=== PATIENT | male | born 1960 | race Caucasian/White ===

== ENCOUNTER 2018-07-10 05:36 | Inpatient (IN) | payer MEDICARE ==
[~2018-07-10] VITALS: Ht 175.3 cm; Wt 99.6 kg
--- NOTE | ~2018-07-10 | HC ---
[facility] [place] [address] CONSULTATION Name: KISHA MENDIOLA Room #: 207-P [facility] M.R.#: [id number] Admission: 07/10/18 Attend Phys: Kofi Garcia MD Discharge: Date of : 56 Report #: [id number] THIS REPORT FOR: //name// CC: Dougie Garcia DATE OF SERVICE: 07/10/2018 REASON FOR CONSULTATION: Dialysis patient. HISTORY OF PRESENT ILLNESS: This is a 57-year-old male who recently has been under the care of the [facility]. He has been on dialysis for about 3 week's period that was started prior to his [facility] hospitalization at [facility]. I tried multiple ways of asking the patient and he cannot remember why his kidneys failed. Unfortunately, I cannot find the records from [facility]. He states he had a biopsy done and was told it was a 1% possibility of finding what was found, so I really do not have any idea what he was talking about as far as the etiology. Nevertheless, several weeks ago, he had left internal jugular vein tunneled dialysis catheter placed and he has been undergoing dialysis thrice weekly since that time. He has been dialyzing on a Sunday, Sunday, Sunday basis and he says he dialyzed earlier today. He says he really does not want to know any details about the dialysis, so he cannot tell me how long he dialyzed, how much volume was removed. He is uncertain how much urine he actually makes at this time. Otherwise, he is really sketchy on any details about his medical care. PAST MEDICAL HISTORY: Obviously, the renal disease. He has some atrial fibrillation, which is part of the reason he is admitted today, also some COPD. He has had deep venous thrombosis. Apparently, he has chronic pain, lays in bed and has developed a decubitus ulcer, also had prior C. diff and that is obtained from what minimal records I have and I cannot tell you much more. MEDICATIONS: Include albuterol, Karsten packets, vitamin C 500 mg b.i.d., aspirin 325 mg daily, Aranesp 40 mcg weekly, Valium p.r.n., Nephrocaps 1 daily, furosemide 80 mg daily, iron, Reglan 10 mg q.i.d., pantoprazole 40 mg b.i.d., Zosyn 2.25 g q.8h., Renvela 800 mg t.i.d. with meals as a phosphate binder, tamsulosin 0.4 mg daily, oral vancomycin (presumably followup of his C. diff), warfarin 3 mg daily, p.r.n. oxycodone. I am unable to find documentation of allergies. FAMILY HISTORY: Unavailable. SOCIAL HISTORY: Again, the patient has been living recently in [facility]. He lives in address in [place], [place] [address] CONSULTATION Name: KISHA MENDIOLA Room #: 207-P [facility] M.R.#: [id number] Admission: 07/10/18 Attend Phys: Kofi Garcia MD Discharge: Date of : 56 Report #: [id number] REVIEW OF SYSTEMS: Cannot tell me what he has. He has a lot of pain in his legs. He also has a lot of pain in his back. He says he has been eating. Denies dyspnea at this time. Cannot tell me about progression of his dialysis or what all has been involved with that. PHYSICAL EXAMINATION: GENERAL: A 57-year-old male who looks much older than his stated age. VITAL SIGNS: Blood pressure 133/94, heart rate 101, temperature is 97.9 degrees Fahrenheit. HEENT: Shows pupils equal and reactive. Oral mucosa is moist. NECK: Shows a left-sided IJ tunneled catheter in place. Through the clear bandage, there looks to be very mild erythema around the exit site. CHEST: Clear bilaterally. HEART: Has a regular rate and rhythm. ABDOMEN: Has active bowel sounds, is soft and nontender. EXTREMITIES: Both legs are wrapped. There appears to be some deeper edema present. Arms show changes of prior edema, but no current edema. I did not look at his decubitus. LABORATORY DATA: Which would have been post-dialysis today, sodium 135, potassium 3.7, chloride 101, bicarbonate 31, BUN 7, creatinine only 2.4, glucose 81, total protein 6.5, albumin 1.9, calcium 9.5. White count 8.3, hemoglobin 10.4, hematocrit 30.5, platelets 265,000. ASSESSMENT AND PLAN: 1. Renal failure. Duration sounds to be fairly recent. His creatinine is very low, but that is post-dialysis. We will access his records from [facility] and talked to Dr. Panchal who has been caring for him there to determine if this is something that looks like he might recover or if this is going to be end stage and chronic. In the meantime, we will follow serial labs and see if we are seeing any evidence of that he needs continued dialysis. Just start to manage creatinine 2.7, then he needs chronic dialysis. Again, that was a post-dialysis lab, so it could be he had very effective clearance. In the meantime, his volume status is good today. His electrolytes are okay. We will follow on that. 2. Decubitus ulcers needing debridement and surgery. 3. Recent atrial fibrillation. 4. Other history, which is rather scant, to be determined going forward. By: 1750 192 Markus Terry MD /nt
[~2018-07-10 05:36] MED LIST: ACIDOPHILUS LA1 EAC1 PO; ALBUTEROL2.5 MG/0.1 INH; APAP650 PO; ARANESP 4040 MCG/0.4 SUBQ; ASPIRIN325 PO; COLACE100 MG PO; COUMADIN 3 MG TA3 M1 PO; DAKIN'S473 M2 TOP; FENTANYL 0.50 MCG/ML IV; FERREX 150150 MG PO; FLOMAX0.4 MG PO; JUVEN PACKET1 EAC1 PO; LASIX 80 MG TAB80 MG PO; MULTI VITAMIN1 EACH PO; NEPHRO-VITE RX1 TA1 PO; OXYCODONE IR PO; PHENERGAN 25 MG25 M1 IV; PIPERACIL-TAZ2.25 G1 IV; PROSOURCE PLUS30 ML PO; PROTONIX40 M1 PO; REGLAN 10 MG TA10 MG PO; RENVELA800 MG PO; SSD CREAM 1% 5050 GM TOP; VALIUM5 MG PO; VANCOMYCIN5 GM/VIAL IV; VITAMINC500 PO; ZINC-220220 MG PO; ZOFRAN4 MG/5 ML IV
[2018-07-10 10:37] LABS: HEMATOCRIT 30.5 % (42.0-52.0); HEMOGLOBIN 10.4 gm/dL (14.0-18.0); MCH 31.9 pg (26.0-34.0); MCHC 34.1 g/dL (28.0-37.0); MCV 93.6 fL (80.0-100.0); RBC 3.26 mil/uL (4.50-6.00); RDW 15.6 % (10.5-14.5); WBC 8.3 thou/uL (4.0-11.0)
[2018-07-10 10:51] LABS: INR 1.3; PROTIME 13.6 Seconds (9.3-11.4)
[2018-07-10 10:52] LABS: CALCIUM 8.5 mg/dL (8.5-10.1); CREATININE 2.4 mg/dL (0.7-1.3); POTASSIUM 3.7 mmol/L (3.5-5.1)
[2018-07-10 10:57] LABS: ALBUMIN 1.9 g/dL (3.4-5.0); TOTAL BILIRUBIN 0.4 mg/dL (<0.1-1.0); TOTAL PROTEIN 6.5 g/dL (6.4-8.2)
[2018-07-10 11:00] VITALS: BP 133/94
[2018-07-10 13:45] VITALS: BP 134/81
--- NOTE | 2018-07-10 14:42 | EKG ---
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: chantell : 1960 Requested By: Hossein Bautista Order Number: [id number] MD: Elieser Rivas Measurements Intervals [place] Rate: 98 P: 38 LA: 106 QRS: -15 QRSD: 104 T: 243 QT: 427 QTc: 546 Interpretive Statements Sinus rhythm Multiple premature complexes, supraven Borderline left axis deviation Nonspecific T abnormalities Borderline prolonged QT interval Baseline wander in lead(s) V2 No previous ECG available for comparison Electronically Signed On 07-10-2018 14:42:43 LEASE OPERATOR by Elieser Rivas [email or web address] <ELECTRONICALLY SIGNED> By: Elieser Rivas MD, [facility] 07/10/18 1442 1035 1035 Elieser Rivas MD, [facility] /EPI
--- NOTE | 2018-07-10 17:56 | NUR ---
PT CAME TO UNIT FROM OPERATING ROOM. PT WAS IN AFIB WITH RATE IN LOW 100'S AND DR. RAMON ORDERED CARDIOLOGY CONSULT TO CLEAR PT FOR SURGERY ON SUNDAY. PT HAS LOWER BACK AND LEG PAIN PARTIALLY CONTROLLED WITH MEDICATION. PT IS FROM [facility]. PT HAS SACRAL WOUND AND WOUND CARE CONSULTED. WILL CONT WITH POC.
[2018-07-10 19:48] VITALS: BP 125/85
[2018-07-10 23:53] VITALS: BP 105/61
[2018-07-11 03:56] VITALS: BP 105/45
[2018-07-11 05:57] LABS: ABSOLUTE NEUTROPHILS 4.9 thou/uL (1.4-8.2); BASOPHILS 1.2 % (0.0-2.0); EOSINOPHILS 10.5 % (0.0-3.0); HEMOGLOBIN 9.1 gm/dL (14.0-18.0); LYMPHOCYTES 17.6 % (24.0-44.0); MCH 31.7 pg (26.0-34.0); MCHC 33.7 g/dL (28.0-37.0); PLATELET COUNT 265 thou/uL (150-400); POLYS 61.7 % (36.0-66.0); RBC 2.87 mil/uL (4.50-6.00); RDW 15.4 % (10.5-14.5); WBC 7.9 thou/uL (4.0-11.0)
--- NOTE | 2018-07-11 05:59 | NUR ---
ASSUMED PT CARE WITH REPORT TAKEN, PT IS ALERT AND ORIENTED WITH NO SIGN OF DISTRESS NOTED IN PT, DENIES ANY NEED AT THIS TIME. PT REQUESTED FOR PAIN MEDICATION THROUGHOUT THE NIGHT, SCHEDULED MED ADMINISTERED TO PT, DENIES ANY FUTHER NEEDS AT THIS TIME. PT IS STABLE, MARI; SIGN STABLE, CONTINUE TO MONITOR PATIENT
[2018-07-11 07:50] VITALS: BP 94/51
--- NOTE | 2018-07-11 08:14 | 2DMMODE ---
[facility] [place] [address] 2 D/M-MODE ECHOCARDIOGRAM Name: KISHA MENDIOLA Room #: 207-P [facility] [place] M..#: [id number] Admission: 07/10/18 Attend Phys: Alok Sanchez Discharge: Date of : 56 Date of Service: 07/11/18 0814 Report #: [id number] THIS REPORT FOR: //name// APPROVED REPORT Study performed: 07/11/2018 07:07:23 EXAM: Comprehensive 2D, Doppler, and color-flow Echocardiogram Patient Location: Bedside Room #: [facility] Status: routine BSA: 2.18 HR: 95 bpm BP: 105/45 mmHg Rhythm: Paroxysmal Atrial Fibrillation Other Information Study Quality: Fair/patient sitting up in bed. Technically limited study due to inability to move patient, limited cooperation, body habitus. Indications Paroxysmal Afib. Hx:Afib, COPD, ESRD Echo Enhancing Agent Indication: Endocardial border delineation Agent(s) / Amount(s) Used: Optison 4 cc 2D Dimensions RVDd: 35.95 mm IVSd: 10.07 (7-11mm) LVOT Diam: 21.99 (18-24mm) LVDd: 47.94 mm PWd: 10.10 (7-11mm) LVDs: 35.70 (25-40mm) Aortic Root: 35.56 mm Volumes Left Atrial Volume (Systole) Single Plane 4CH: 26.53 mL Single Plane 2CH: 48.43 mL LA ESV Index: 19.00 mL/m2 Aortic Valve AoV Peak [place].: 2.20 m/s AO Peak Gr.: 19.42 mmHg LVOT Max P.44 mmHg AO Mean Gr.: 12.20 mmHg [facility] [address] [place] [address] 2 D/M-MODE ECHOCARDIOGRAM Name: MARLENAKISHA Room #: [address] [place] [address].#: [id number] Admission: 07/10/18 Attend Phys: Alok Sanchez Discharge: Date of : 56 Date of Service: 07/11/18 0814 Report #: [id number] AO V2 Mean: 1.68 m/s LVOT Max V: 1.04 m/s AO V2 VTI: 34.81 cm DEDE Vmax: 1.79 cm2 Mitral Valve E/A Ratio: 1.0 MV Decel. Time: 213.32 ms MV E Max [place].: 0.71 m/s MV A [place].: 0.70 m/s MV PHT: 61.86 ms IVRT: 101.50 ms Tricuspid Valve TR Peak [place].: 2.19 m/s TR Peak Gr.: 19.22 mmHg Left Ventricle The left ventricle is normal size. There is normal LV segmental wall motion. There is normal left ventricular wall thickness. Left ventricular systolic function is normal. LVEF is 60-65%. This study is not technically sufficient to allow evaluation of the LV diastolic function. Right Ventricle Right ventricle is not well visualized but appears grossly normal. Atria The left atrium size is normal. The right atrium size is normal. Aortic Valve Aortic valve leaflets are sclerotic Mild aortic regurgitation. Mild aortic stenosis. Mitral Valve Mild mitral annular calcification. There is no mitral valve regurgitation noted. No evidence of mitral valve stenosis. Tricuspid Valve The tricuspid valve is normal in structure. Trace tricuspid regurgitation. Estimated PAP is 25 mmHg Pulmonic Valve Pulmonic valve is not well visualized. [facility] [address] [place] [address] 2 D/M-MODE ECHOCARDIOGRAM Name: KISHA MENDIOLA Room #: 207-P [facility] [place] M..#: [id number] Admission: 07/10/18 Attend Phys: Alok Sanchez Discharge: Date of : 56 Date of Service: 07/11/18 0814 Report #: [id number] Great Vessels The aortic root is normal in size. Ascending aorta is not well visualized. IVC is not well visualized. Pericardium There is no pericardial effusion. <Conclusion> Left ventricular systolic function is normal. There is normal LV segmental wall motion. LVEF is 60-65%. Aortic valve leaflets are sclerotic. Mild aortic regurgitation and stenosis. Mild mitral annular calcification. No mitral valve regurgitation Trace tricuspid regurgitation. Estimated pulmonary artery pressure of 25 mmHg There is no pericardial effusion. <ELECTRONICALLY SIGNED> By: Elieser Rivas MD, FACC 07/11/18813 3 3 Elieser Rivas MD, FACC /INF
--- NOTE | 2018-07-11 08:34 | NUR ---
Assess due to RD consult received for pt with sacral ulcer requiring sacral debridement and diverting colostomy pending sunday. Pt poor historian. Chart reviewed and noted has been bedbound due to back pain, new start dialysis for GARY ~3 weeks ago, unknown etiology. Has resided at [facility] and was on irma supplements so will restart these. No wt hx but pt reported was eating. Low nutrition risk with nutrition interventions started. Follow for intake trends, encourage high protein sources.
--- NOTE | 2018-07-11 08:40 | EKG ---
[place] [address] [facility] [place] [address] ELECTROCARDIOGRAM REPORT Name: KISHA MENDIOLA Room #: 207-P [facility]..#: [id number] Admission: 07/10/18 Attend Phys: Kofi Garcia MD Discharge: Date of : 56 Report #: [id number] THIS REPORT FOR: //name// [facility] Test Date: 2018-07-11 Test Time: 06:37:12 Pat Name: KISHA MENDIOLA Department: Room: 207 P Gender: M Ham Smoker: RAJIV : 1960 Requested By: Elieser Rivas Order Number: [id number] MD: Elieser Rivas Measurements Intervals [place] Rate: 91 P: 30 OK: 118 QRS: -18 QRSD: 76 T: 33 QT: 427 QTc: 526 Interpretive Statements Sinus rhythm with frequent atrial premature complexes. Nonspecific ST and T wave abnormality Prolonged QT interval Compared to ECG 07/10/2018 10:35:15 No significant change was found Electronically Signed On 07-11-2018 8:40:13 HOT TAR ROOFER by Elieser Rivas [email or web address] <ELECTRONICALLY SIGNED> By: Elieser Rivas MD, [facility] 07/11/18 0840 0637 0637 Elieser Rivas MD, [facility] /EPI
--- NOTE | 2018-07-11 10:53 | NUR ---
Patient admits from [facility] for debridgement and colostomy. Patient was at [facility]. He has decubutous ulcers to sacrum. Patient agreeable to return to [facility] post procedure but wants to return Sunday. updated [facility]
--- NOTE | 2018-07-11 14:41 | NUR ---
WOUND CONSULT: PT. WAS SEEN TODAY BY DR. ALLISON AND MYSELF. PT. REFUSED TO ALLOW US TO TURN AND ASSESS HIS WOUND TO HIS BACKSIDE AT THIS TIME. PT. KEEP STATING OVER AND OVER AGAIN THAT HE JUST WASN'T READY. AFTER SOME DISCUSSION HE DID FINALLY AGREE TO ALLOW DR. ALLISON TO RETURN AFTER HIS CLINIC WAS FINISHED TODAY AND ASSESS HIS WOUND. PT. SHOWS SIGNIFICANT SIGNS OF NON-COMPLIANTS AND WOUND HEALING WILL BE VERY DIFFICULT. STAFF NURSE WAS PRESENT IN THE ROOM FOR THIS VISIT WELL. RECOMMENDATIONS: CONTINUE TO TRY TO RESON WITH PT. TO GET TO SEE THE WOUNDS SO AN ASSESMENT CAN BE COMPLETED AND ORDERS CAN BE PLACED. PT. AND STAFF NURSE WERE INSTRUCTED ON PLAN OF CARE.
--- NOTE | 2018-07-11 15:20 | NUR ---
ASSUMED CARE OF PT AT 0700. PT A&OX4, BEDRIDDEN. PT COMPLAINS OF PAIN IN LOWER BACK AND LEGS THAT IS PARTIALLY RELIEVED BY MEDICATION. PT REFUSES CARES AND TURNS. DR. ALLISON, AND NURSE MARY CAME TO ACCESS PT'S WOUND WITH THIS NURSE. PT REFUSED CARES AND DR. ALLISON SAID HE WOULD TRY AGAIN AT 1715. PT HAS NOT LET ME LOOK AT WOUND OR PHOTOGRAPH. PT AGREED TO AIR PUMP FOR BED. WILL TRY AND ACCESS WOUND AGAIN AT 1715 WITH AT 1715.
[2018-07-11 15:35] VITALS: BP 91/54
[2018-07-11 19:52] VITALS: BP 116/61
[2018-07-12] VITALS: BP 105/55
--- NOTE | 2018-07-12 04:26 | NUR ---
ASSUMED PT CARE AT 1900. PT A/O X4, A LITTLE IRRITABLE. VITAL SIGNS STABLE, ASSESSMENT CHARTED. PAIN PARTIALLY CONTROLLED WITH PAIN MEDICATION. PT REFUSED TURNS AND WILL ONLY LET US PULL HIM UP IN BED. PT RESTED WELL THROUGH THE NIGHT. WILL CONTINUE TO MONITOR AND ENCOURAGE TURNS. PROGRESSING SLOWLY TOWARD PLAN OF CARE. SURGERY IN AM. WILL CONTINUE TO MONITOR.
[2018-07-12 04:46] VITALS: BP 89/49
--- NOTE | 2018-07-12 05:40 | H ---
[facility] [place] [address] HISTORY AND PHYSICAL Name: KISHA MENDIOLA Room #: 207-P ADM IN M.R.#: [id number] Admission: 07/10/18 Attend Phys: Kofi Garcia MD Discharge: Date of : 56 Report #: [id number] THIS REPORT FOR: //name// CC: Dougie Bautista DATE OF SERVICE: 07/10/2018 REASON FOR ADMISSION: This is a patient from [facility]. He is here for diverting colostomy and now admitted because of atrial fibrillation. HISTORY OF PRESENT ILLNESS: This patient has a sacral wound and is in need of diverting colostomy and there has been difficulty getting this accomplished due to anticoagulation status and now atrial fibrillation. PAST MEDICAL HISTORY: Significant for end-stage renal disease with dialysis. He has COPD. He has hypertension and debility. He also has sacral decubitus that is followed by the wound care team. MEDICATION LIST: Includes Lasix, Flomax, pantoprazole, DuoNeb, oxycodone, diazepam, fentanyl, promethazine, and Cardizem. FAMILY HISTORY: Noncontributory. SOCIAL HISTORY: He is disabled, on dialysis currently at [facility], which is LT[facility]. REVIEW OF SYSTEMS: 10-point otherwise negative. PHYSICAL EXAMINATION: GENERAL: Shows him to be awake, alert and oriented. He is in no distress. HEENT: Negative. NECK: Supple without thyromegaly or adenopathy. CHEST: Clear. CARDIOVASCULAR: Shows regular rate and rhythm. ABDOMEN: Soft and nontender. EXTREMITIES: No cyanosis, clubbing or edema. NEUROLOGIC: Nonfocal. WOUND EXAM: I reviewed the wound care documentation for the sacral wound. LABORATORY DATA: Laboratory parameters are as noted. ASSESSMENT AND PLAN: This is a patient with sacral wound and in the need of diverting colostomy with significant comorbid condition of atrial fibrillation [facility] [address] [place] [address] HISTORY AND PHYSICAL Name: KISHA MENDIOLA Room #: 207-P ADM IN [facility]#: [id number] Admission: 07/10/18 Attend Phys: Kofi Garcia MD Discharge: Date of : 56 Report #: [id number] that needs to be further evaluated prior to surgery since basically the surgical approach is elective. <ELECTRONICALLY SIGNED> By: Silvio Gil MD 07/12/18 0540 1437 1535 Silvio Gil MD /nt
[2018-07-12 06:28] LABS: ALBUMIN 1.6 g/dL (3.4-5.0); CALCIUM 8.6 mg/dL (8.5-10.1); PHOSPHORUS 2.8 mg/dL (2.5-4.9)
[2018-07-12 06:29] LABS: % SATURATION 49 % (20-39); CREATININE 4.8 mg/dL (0.7-1.3); IRON 32 ug/dL (65-175); TIBC 65 ug/dL (250-450)
[2018-07-12 07:55] VITALS: BP 107/53
--- NOTE | 2018-07-12 08:20 | NUR ---
PT REQUESTED HELP WITH POSITIONING AND PAIN MEDICATION. ACCEPTED HAVING HIS VITALS TAKEN BUT COMPLAINED ABOUT IT. I STARTED TO DO MY ASSESSMENT AND WHEN I PUT MY STETHOSCOPE TO HIS CHEST HE REFUSED AND YELLING NO AND LEAVE ME ALONE. WILL TRY ASSESSMENT BEFORE GIVEN NEXT PAIN MED.
--- NOTE | 2018-07-12 08:22 | HC ---
[facility] [place] [address] CONSULTATION Name: KISHA MENDIOLA Room #: 207-P ADM IN M.R.#: [id number] Admission: 07/10/18 Attend Phys: Kofi Garcia MD Discharge: Date of : 56 Report #: [id number] THIS REPORT FOR: //name// CC: Dougie Bautista DATE OF SERVICE: 07/11/2018 CHIEF COMPLAINT: Sacral and right posterior thigh pressure ulcerations. HISTORY OF PRESENT ILLNESS: This is a 57-year-old white male with a history of paraplegia. He has significantly infected pressure ulceration and was admitted for debridement and colostomy placement. He has had a recent hospitalization at [facility] for acute kidney injury that required initiation of dialysis. He has had a longstanding pressure ulcer. It is unknown as to exactly when it began. He complains of significant pain in his pelvic region and his legs. It is not entirely clear what the etiology is. He has end-stage renal disease, requiring dialysis recently. He has a history of C. diff enterocolitis as well as atrial fibrillation. MEDICATIONS: Include albuterol, vitamin C, aspirin, Aranesp, Valium, Nephrocaps, furosemide, iron, Reglan, pantoprazole, Zosyn, Renvela, tamsulosin, vancomycin and Coumadin. ALLERGIES: PROCHLORPERAZINE. SOCIAL HISTORY: Negative for drug use. Negative for alcohol use. Positive for smoking, having quit greater than 1 year ago. FAMILY HISTORY: Unknown and noncontributory. REVIEW OF SYSTEMS: CONSTITUTIONAL: The patient denies fever, chills or weight loss. NEUROLOGICAL: The patient does have some lower extremity weakness. The etiology is indeterminate. ENT: The patient denies earache, nasal drainage or sore throat. CARDIOVASCULAR: The patient denies chest pain, palpitations or diaphoresis. PULMONARY: The patient denies cough or shortness of breath. GASTROINTESTINAL: The patient denies nausea, vomiting, diarrhea or abdominal pain. ORTHOPEDIC: The patient complains of pain in his pelvic region as well as legs and lower extremities. Other systems in a 14-point review of systems are negative. PHYSICAL EXAMINATION: [facility] [address] [place] [address] CONSULTATION Name: KISHA MENDIOLA Room #: 207-[facility] IN [facility].#: [id number] Admission: 07/10/18 Attend Phys: Kofi Garcia MD Discharge: Date of : 56 Report #: [id number] VITAL SIGNS: At this time include pulse 95, respiratory rate 20, blood pressure 91/54, temperature 98.7. GENERAL: This is a chronically ill-appearing male patient who appears to be in moderate discomfort. HEENT: Head: Normocephalic, atraumatic. Nose and throat clear. NECK: Supple. LUNGS: Clear. HEART: Irregular. ABDOMEN: Slightly distended, nontender. Pelvic region demonstrates complex pressure ulcerations to the sacral gluteal region with tunnels and some palpable bone that can be palpated, but not visualized. EXTREMITIES: There is a large ulceration to his right posterior thigh. It is mostly covered with yellow fibrin with a ring of granulation tissue. Lower extremities shows some evidence of contracture in the knees and hips. His lower extremities are wrapped and he has not permitted me to unwrap them. CLINICAL IMPRESSION: 1. Stage 4 sacral gluteal pressure ulceration. 2. Unstageable pressure ulcer in right posterior thigh. 3. Lower extremity weakness/paraplegia of uncertain etiology. The patient has not been very forthcoming with additional information about himself. 4. End-stage renal disease, requiring dialysis. 5. Atrial fibrillation. RECOMMENDATIONS: The patient is scheduled for debridement and colostomy tomorrow. We have discussed this in detail. He is willing to proceed with that. He is very particular about his wound care and turning and he is reluctant to be placed on a turning protocol. He has reluctantly allowed us to use a low air loss mattress. We will suggest Prevalon boots or PRAFO boots for pressure prophylaxis, but he does state he does not wish to have these in place at this time. I have changed his dressings and placed a moistened saline gauze dressing to the wounds today indicating that he would likely have a debridement tomorrow. We will leave surgical dressings in place at least for 24 hours and then perhaps go with the saline moist gauze dressing or wound VAC, although the patient has a voice that he does not wish to have a wound VAC. I appreciate being asked to see him in consultation. This will certainly be a challenge with his moderate noncompliance with offloading and other instructions. <ELECTRONICALLY SIGNED> By: Ignacio Williamson MD 07/12/18 0822 1837 24 Ignacio Williamson MD /nt
--- NOTE | 2018-07-12 10:33 | NUR ---
patient went for sx. Updated [facility] they need to obtain auth from [facility] for return to [facility]. anticipate no weekend dc.
[2018-07-12 14:10] VITALS: BP 103/68
[2018-07-12 15:25] VITALS: BP 104/54
[2018-07-12 19:43] VITALS: BP 84/51
[2018-07-12 23:06] LABS: HBsAG-EMPLOYEE EXPOSURE Negative (Negative); HCV AB-EMPLOYEE EXPOSURE 0.2 (0.0-0.9)
[2018-07-13 00:05] VITALS: BP 94/40
--- NOTE | 2018-07-13 03:44 | NUR ---
PT POST WOUND DEBRIDMENT. ALERT AND ORIENTED. VSS.. A LITTLE LOW BP. PT CALM AND COOPERATIVE BUT UNCOOPERATIVE AND REFUSES OTHER CARES. PT REFUSED REPOSITIONING Q2H. NURSE EXPLAINED THE NEED FOR Q2 TURNS BUT PT COULD NOT LET US TURN HIM . PAIN MED GIVEN NEEDED ROUTINELY. NEW COLOSTOMY BAG INTACT. URINARY CATHETER PATENT. WILL CONTINUE TO FOLLOW POC.
[2018-07-13 04:23] VITALS: BP 96/49
[2018-07-13 04:38] LABS: ABSOLUTE NEUTROPHILS 14.1 thou/uL (1.4-8.2); BASOPHILS 0.3 % (0.0-2.0); EOSINOPHILS 0.1 % (0.0-3.0); HEMOGLOBIN 7.5 gm/dL (14.0-18.0); LYMPHOCYTES 5.9 % (24.0-44.0); MCHC 32.7 g/dL (28.0-37.0); MCV 94.9 fL (80.0-100.0); MONOCYTES 5.9 % (1.0-8.0); PLATELET COUNT 260 thou/uL (150-400); POLYS 87.8 % (36.0-66.0); RBC 2.43 mil/uL (4.50-6.00); RDW 15.6 % (10.5-14.5)
[2018-07-13 04:44] LABS: ALBUMIN 1.5 g/dL (3.4-5.0); CALCIUM 8.8 mg/dL (8.5-10.1); CREATININE 5.7 mg/dL (0.7-1.3); PHOSPHORUS 4.2 mg/dL (2.5-4.9); POTASSIUM 4.9 mmol/L (3.5-5.1)
[2018-07-13 07:30] VITALS: BP 100/46
--- NOTE | 2018-07-13 11:54 | NUR ---
PT WOUND CARE - PT REFUSES WOULD CARE BE RN AND STATES, "NO, THE WOULD DR WILL DO IT AND WILL BE HERE TODAY". WILL MONITOR.
[2018-07-13 19:52] VITALS: BP 95/36
--- NOTE | 2018-07-13 21:06 | O ---
[facility] [place] [address] OPERATIVE REPORT Name: KISHA MENDIOLA Room #: 207-P ADM IN M.R.#: [id number] Admission: 07/10/18 Attend Phys: Kofi Garcia MD Discharge: Date of : 56 Report #: [id number] THIS REPORT FOR: //name// CC: Dougie Bautista MD DATE OF SERVICE: 07/12/2018 PREOPERATIVE DIAGNOSES: 1. Unstageable sacral/ischial and right posterior thigh decubitus ulcers. 2. End-stage renal disease with hemodialysis dependence. 3. Chronic obstructive pulmonary disease. 4. Hypertension. 5. Debility. POSTOPERATIVE DIAGNOSES: 1. Stage 4 sacral/ischial decubitus ulcer and stage 3 right posterior thigh ulcer. 2. Incarcerated incisional ventral hernia. 3. End-stage renal disease with hemodialysis dependence. 4. Chronic obstructive pulmonary disease. 5. Hypertension. 6. Debility. SURGEON: Hossein Bautista MD. GROUNDS SUPERVISOR: None. OPERATION PERFORMED: 1. Laparoscopic assisted diverting end transverse colostomy. 2. Laparoscopic primary repair of incarcerated incisional ventral hernia. 3. Excisional and ultrasonic debridement of stage 4 sacral and right heel decubitus ulcers including skin, subcutaneous tissue, muscle and bone with a starting area of 28 square cm and then ending area of 387 square cm. 4. Excisional and ultrasonic debridement of stage 3 right posterior thigh decubitus ulcer including skin and subcutaneous tissue with a starting area of 28 square cm and an ending area of 41.3 square cm. ANESTHESIA: General endotracheal anesthesia and local anesthetic. ESTIMATED BLOOD LOSS: 25 mL. SPECIMEN: Sacral soft tissue, sacral bone and right posterior thigh soft [facility] [address] [place] [address] OPERATIVE REPORT Name: KISHA MENDIOLA Room #: 207-P [facility] IN .R.#: [id number] Admission: 07/10/18 Attend Phys: Kofi Garcia MD Discharge: Date of : 56 Report #: [id number] tissue. COMPLICATIONS: None appreciated. INDICATION FOR PROCEDURE: This is an obese 57-year-old male patient who has been bedbound as a result of back and lower extremity pain. As a result of his sedentary lifestyle, he developed extensive sacral and right posterior thigh decubitus ulcers that are essentially unstageable. The area involved is quite large and has a high likelihood of fecal contamination. The patient presents now for laparoscopic-assisted diverting colostomy as well as excisional and ultrasonic debridement of his wounds. OPERATIVE FINDINGS: The wound measurements are as noted above. The patient had extensive soft tissue loss involving the sacrum and right ischium with a bridge connecting the 2 areas. After opening the wound and excising the skin bridge, the area was 387 square cm. The right posterior thigh wound was much smaller and involved only skin and subcutaneous tissue. Laparoscopically, a suitable site for the colostomy was chosen. After creation of the stoma, the stoma itself was palpably patent beyond the fascial level on digital exam. The stomal mucosa remained pink throughout with no evidence for ischemia. DESCRIPTION OF PROCEDURE IN DETAIL: After the risks, benefits, and expectations of the operation were discussed in detail with the patient, informed consent was obtained. The patient was identified in the preoperative holding area. He was given IV antibiotics as documented in the chart [facility]. The patient was then taken to the operating room and he was placed in the supine position. SCDs were placed on the patient's bilateral lower extremities and pneumatic compression was initiated. The patient was then given IV sedation and he was intubated without incident. He was placed in the prone position on the operating room table. His sacral and right ischial areas as well as right posterior thigh were prepped and draped in the standard sterile fashion. A time-out was performed to identify the correct patient and procedure. Local anesthetic was infiltrated into the skin and subcutaneous tissue in the area of planned incision. Measurements were taken before excision of the tissue as well as after full debridement of both areas. The sacral and right ischial areas connected with the subcutaneous tunnel. The skin and subcutaneous tissue was then excised including all nonviable tissue. Dissection was carried down to the sacral bone and right ischial bone, both of which appeared to be involved with infection. Cultures were taken to be sent for aerobes, anaerobes and fungus. Bleeding points were then made hemostatic with electrocautery. A rongeur was used to remove bony prominences and any involved osteomyelitis. A rasp was then used to smooth out the outer table of the bone and prevent jagged edges from causing further necrosis. [address] [address] OPERATIVE REPORT Name: KISHA MENDIOLA Room #: 207-P ADM IN M.R.#: [id number] Admission: 07/10/18 Attend Phys: Kofi Garcia MD Discharge: Date of : 56 Report #: [id number] The Misonix ultrasonic debridement device was used to mechanically debride the entire surface area of the wound. There was good cavitation of the wound with a microscopic clearance of nonviable cells and bacteria. Bleeding points were again made hemostatic with electrocautery. The wound was then packed with normal saline on Kerlix. Sterile dressings were applied. The right posterior thigh wound was debrided in a similar fashion. Local anesthetic was infiltrated into the skin and subcutaneous tissue. The planned incision was drawn out with a skin marker and a sharp #10 blade scalpel was used to make an incision through the skin. Electrocautery was used to dissect through the subcutaneous tissue and excise all nonviable tissue. Bleeding points were then made hemostatic with electrocautery. The Misonix device was used to mechanically debride the right posterior thigh wound for the entire surface area. The wound was packed with normal saline on 4 x 4s and sterile dressings. The patient was then placed in the supine position on the operating room table. His abdomen was prepped and draped in the standard sterile fashion. Local anesthetic was infiltrated into the skin and subcutaneous tissue in the periumbilical area where a small incision was made. The 5-mm Visiport was placed intraperitoneally with a 0-degree angled laparoscope. Pneumoperitoneum was achieved with insufflation of carbon dioxide to 15 mmHg. A 30-degree angled laparoscope was inserted. Intraabdominal adhesions were seen. The 5-mm ports were placed in the left subcostal and right lower quadrant after local anesthetic was infiltrated into the skin and subcutaneous tissue and appropriately sized incisions were made. The transverse colon was identified and a suitable area was chosen for transection. A window was made in the mesocolon with the ultrasonic dissector. The right lower quadrant 5-mm port was upsized to a 12-mm port. The endoscopic ANA stapler was then used to staple and divide the transverse colon. The hepatic flexure was mobilized to help achieve length and help decrease the risk for retraction of the stoma. A 5-mm port was then placed in the area of the planned stoma under direct visualization. A circular skin incision had been created. After placing the port, a wavy grasper was used to grasp the proximal staple line. Dissection was then carried down to the fascia externally. A cruciate incision was made in the fascia. The posterior fascia was opened in a similar fashion. After stretching the fascia to allow for passage of 2-3 fingers, the proximal staple line was delivered externally. The staple line was then excised and the colostomy was matured. Interrupted Zelda-type sutures were placed at the 12, 3, 6, and 9 o'clock positions. Short runs of 3-0 Vicryl suture were then used to complete the maturation process. After doing so, the stoma was digitally examined and was palpably patent beyond the fascial level. The 12-mm port site fascial opening was closed with an 0 PDS suture laparoscopically. The abdominal cavity was then desufflated and the remaining ports were removed. Interrupted subcuticular 4-0 Monocryl sutures and Dermabond were used to close [address] [address] OPERATIVE REPORT Name: KISHA MENDIOLA Room #: 207-P [facility] IN M.R.#: [id number] Admission: 07/10/18 Attend Phys: Kofi Garcia MD Discharge: Date of : 56 Report #: [id number] the skin incisions. The patient tolerated the procedure well. He was awakened, extubated, and taken to recovery room in stable condition with no apparent intraoperative complications. <ELECTRONICALLY SIGNED> By: Hossein Bautista MD, FACS 07/13/182105 11 13 Hossein Bautista MD, FACS /nt
--- NOTE | 2018-07-14 04:10 | NUR ---
PT ALERT AND ORIENTED. PAIN CONSTANT AT 8-9/10. PRN 20MG Q4 GIVEN. PT STILL REFUSES REPOSITIONING. REFUSED WOUND CARE FROM DAY SHIFT AND ALSO NOC. I EXPLAINED TO THE PT RISKS OF NOT HAVING WOUND CARE DONE BUT STILL COULD NOT ALLOW DRESSING CHANGE. WILL CONTINUE TO FOLLOW POC.
[2018-07-14 05:27] VITALS: BP 98/49
[2018-07-14 07:45] VITALS: BP 91/54
[2018-07-14 11:40] VITALS: BP 89/47
[2018-07-14 15:50] VITALS: BP 93/60
[2018-07-14 19:35] VITALS: BP 90/51
--- NOTE | 2018-07-14 20:28 | NUR ---
ASSUMED CARE OF PT AT 0700. PREVIOUS NURSE REPORTS THAT PT REFUSING CARES. I DISCUSSED THE NEED FOR WOUND CARE DUE TO INFECTION PREVENTION AND HEALING. PT ALLOWED THIS NURSE TO CHANGE DRESSING THIS AFTERNOON. DRESSING CHANGE VERY DIFFICULT PT VERY ANXIOUS AND YELLS OUT IN PAIN. PT REFUSES TURNS AND HAS TWO PILLOWS ON EACH SIDE OF BUTTOCKS. PT REFUSED BED AIR PUMP AGAIN TODAY, EVEN AFTER EDUCATION GIVEN. DR. Brittany LAZARO AND DR. FRANKLIN NOTIFIED OF PT'S NON COMPLIANCE. PT'S BLOOD PRESSURE IS LOW, AND PT IS ASYMPTOMATIC. PT IS MED/SURG. WILL CONT WITH POC.
--- NOTE | 2018-07-14 22:15 | NUR ---
ASSESSMENT DOCUMENTED.PT RESTING IN BED AT THIS TIME IN NO ACUTE DISTRESS.AOX4.PT C/O PAIN TO BACK AND LEGS,BECOMES VERY IRRITABLE WITH ANY TOUCH/MOVEMENT,PAIN MEDS GIVEN PER ORDERS.PT REFUSED TO BE REPOSITIONED/TURNS IN BED.REFUSES WOUND ASSESSMENT BY RN,STATING HE IS OKAY AND TX IS ONCE/DAY.EDUCATED ON THE NEED OF FREQUENT TURNS/REPOSITION AND WOUND ASSESSMENT,VOICED UNDERSTANDING,YET REFUSES CARE.PT REQUESTING TO BE LEFT ALONE TO REST.WILL CONT TO MONITOR PE POC.
[2018-07-15 05:16] VITALS: BP 91/49
[2018-07-15 07:38] VITALS: BP 84/45
--- NOTE | 2018-07-15 10:50 | HC ---
[facility] [place] [address] [place] [address] CONSULTATION Name: KISHA MENDIOLA Room #: 207-P ADM IN M.R.#: [id number] Admission: 07/10/18 Attend Phys: Kofi Garcia MD Discharge: Date of : 56 Report #: [id number] THIS REPORT FOR: //name// CC: Dougie Bautista DATE OF SERVICE: 07/14/2018 REASON FOR CONSULTATION: I was asked to evaluate concerning sacral and heel osteomyelitis along with previous C. difficile colitis and end-stage renal disease. HISTORY OF PRESENT ILLNESS: The patient is a 57-year-old recently diagnosed with end-stage renal disease with dialysis via left chest tunneled catheter for approximately 4-6 weeks. This was treated at [facility]. He has had longstanding wounds. He has had issues with persistent pain. He avoids turning and has had progressive changes here. Recent diagnosis of C. difficile colitis having been treated. He was at [facility] for further wound care and dialysis. I saw him there and had him on Zosyn and enteral vancomycin. Transfers to [facility] for further surgical debridement and diverting colostomy. He underwent procedure with debridement of his sacrum, right heel and right thigh, now postoperative day #2. He also had creation of a colostomy for diversion of fecal stream along with repair of a hernia. Postoperatively, he has been stable. No fever, chills or sweats. Still has a leukocytosis. REVIEW OF SYSTEMS: The patient was a poor historian, but there has been no cough or sputum production. No nausea or vomiting. He still has not put any stool out of his ostomy. He is on dialysis 3 times a week. He has had no other skin rashes or wounds. No lymphatic issues. Denies any other neurologic or psychiatric illnesses. Has atrial fibrillation, which is being treated. No other pulmonary issues. Denies any endocrine abnormalities. REVIEW OF SYSTEMS: A 10-point review of systems is otherwise negative than what is described. ALLERGIES: PROCHLORPERAZINE. MEDICATIONS: As noted on his MAR including Zosyn. The vancomycin was not restarted yet. PAST MEDICAL HISTORY: No chronic renal disease with end-stage renal disease, atrial fibrillation, COPD, DVT, chronic pain syndrome, C. difficile colitis, decubitus ulcers with now evidence of osteomyelitis. [address] [address] CONSULTATION Name: KISHA MENDIOLA Room #: 207-P [facility] IN M.R.#: [id number] Admission: 07/10/18 Attend Phys: Kofi Garcia MD Discharge: Date of : 56 Report #: [id number] FAMILY HISTORY: Noncontributory. SOCIAL HISTORY: He smokes cigarettes. No significant alcohol history. PHYSICAL EXAMINATION: GENERAL: Alert and cooperative and pleasant, in no acute distress. Does not like to be touched have his sheets pulled off. When attempting to move the patient, he gets very anxious. He appears his stated age. VITAL SIGNS: He is afebrile and hemodynamically stable. He has a right IJ central catheter, which was without drainage and he has a tunneled left chest catheter for his dialysis without drainage. HEENT: Mouth without mucositis or lesions. Eyes with no conjunctivitis or scleral icterus. NECK: Supple. LUNGS: Clear. HEART: Regular without murmur, gallop or rub. ABDOMEN: Soft and nontender. Sacral wound was dressed. Abdomen was mildly distended, was minimally tender except around his colostomy. His incisions were unremarkable. EXTREMITIES: Right heel wound was dressed. Right thigh wound was dressed. NEUROLOGIC: Nonfocal with no cranial nerve abnormalities and strength appeared normal throughout. LABORATORY STUDIES: His creatinine is 5.7, alkaline phosphatase 129, ALT 14, bilirubin 0.4, hemoglobin 7.5, platelet count 260,000, white count 16 with 87% segs, 5% lymphs. Sacral tissue Gram-stain showed no organisms and no white blood cells. Cultures are pending. Note that these cultures were obtained while on antibiotic therapy. IMPRESSION: 1. Sacral and right heel pressure wounds with underlying osteomyelitis. 2. Pressure wound to the right thigh posteriorly. 3. Intolerance of much activity due to chronic pain syndrome. 4. End-stage renal disease. 5. Recent Clostridium difficile colitis, now asymptomatic. 6. Atrial fibrillation. RECOMMENDATION: We will continue with Zosyn, adjusted for his renal failure. Restart enteral vancomycin to prevent relapse of his C. difficile colitis. Await tissue cultures. Follow laboratory studies including ESR. Continue offloading and wound care. <ELECTRONICALLY SIGNED> By: Kali Gil MD 07/15/18 1050 [id number] Kali Gil MD /nt
--- NOTE | 2018-07-15 11:48 | NUR ---
PT. CURRENTLY RESIDES AT [facility]. FAXED CLINICAL UPDATE TO FACILITY AND SPOKE WITH CHARLIE IN ADM. AND SHE RECEIVED UPDATE. DCP TO FOLLOW.
--- NOTE | 2018-07-15 12:08 | NUR ---
Patient stable to return to [facility]. Sp with [facility] they are in process of obtaining auth but likely with not rec in next 24/48 hours.
[2018-07-15 15:40] VITALS: BP 122/55
--- NOTE | 2018-07-15 19:31 | NUR ---
PARTIAL ASSESSMENT COMPLETED. PT WOULD NOT ALLOW THIS NURSE TO DO HEAD TO TOE ASSESSMENT. PT REFUSED TURNS, AIR MATTRESS PUMP, ASSESSMENT OF LEGS, ASSESSMENT OF OSTOMY, NOT ALLOWING GOWN TO BE RAISED FOR THIS NURSE TO LOOK. ONLY ABLE TO ASSESS RIGHT SIDED BOWEL SOUNDS. PT ALLOWED DR TAPIA TO DO DRESSING CHANGE AND TURNED ON RIGHT SIDE. EDU PT ABOUT REASONING FOR TURNS, PAIN MANAGEMENT WITH TURNS, AIR MATTRESS PUMP. PT YELLED AND DID NOT WANT IT ON THE BED. PT VERY RELUNCTANT TO HAVE ABX HOOKED UP, WAS ABLE TO GET ZOSYN STARTED AND FINISHED. PT TOOK ORAL VANCO. PT CALLS FOR MEDS EVERY 4 HOURS. PT REFUSED SKIN ASSESSMENT OF LEGS. PT REPORTED LEGS WERE WRAPPED AT [facility] AND WOULD NOT ALLOW THIS NURSE TO ASK QUESTIONS, CUTTING THIS NURSE OFF WHEN EXPLAINING NEED TO ASSESS LEGS. PT YELLED AND STATED TO COVER HIS LEGS BACK UP. PT HAD DIAYLSIS TODAY AND HAD 1.9 REMOVED. VSS, NO S/SX OF CARDIAC OR RESP DISTRESS. WILL CONTINUE TO MONITOR.
[2018-07-15 20:13] VITALS: BP 97/43
--- NOTE | 2018-07-15 23:06 | PATH ---
[facility] [place] [address] PATHOLOGY RPT PROCEDURE Name: EFRAIN AGUILAR Room #: 207-P ADM IN M.R.#: [id number] Admission: 07/10/18 Date of : 56 Discharge: Report #: [id number] Path Case #: [id number] [facility] Accession Number: [id number] . 01 Material submitted: . PART A: SACRAL TISSUE PART B: SACRAL BONE PART C: RIGHT POSTERIOR THIGH TISSUE PART D: INCARCERATED INCISIONAL VENTRAL HERNIA . 01 Clinical history: . Sacral wound . 02 Diagnosis: A. Skin with underlying soft tissue (sacral tissue): - Extensive epidermal ulceration with necrotic acute inflammatory exudate extending deeply into the underlying fat with fat necrosis. . B. Bone with surrounding soft tissue (sacral bone): - Acute and chronic osteomyelitis with areas of fibrosis. The surrounding soft tissue also reveals an inflammatory process. . C. Soft tissue "right posterior thigh tissue": - Extensive necrosis with acute inflammatory exudate with fat necrosis and gangrenous type of necrosis. . D. Fibroadipose tissue "incarcerated incisional ventral hernia", herniorrhaphy: - Fibroadipose tissue consistent with hernia with congestion. (SHA:orestes; 07/15/2018) QMS/07/15/2018 . 02 Electronically signed: . Aaron Hills MD, Pathologist NPI- [id number] . 01 Gross description: . A. The specimen is received in formalin, labeled "Efrain Aguilar, sacral tissue" and consists of a segment of necrotic and ulcerated hayes-sun skin with underlying yellow soft tissue measuring 12.0 x 9.3 x 3.0 cm. Control Systems Eng sections are submitted in A1. . B. The specimen is received in formalin, labeled "Efrain Aguilar, sacral bone" and consists of multiple fragments of sun-brown bone measuring 3.3 x 1.8 x 0.5 cm in aggregate which is entirely submitted in B1 [place] [address] PATHOLOGY RPT PROCEDURE Name: EFRAIN AGUILAR Room #: 207-P [facility] IN M.R.#: [id number] Admission: 07/10/18 Date of : 56 Discharge: Report #: [id number] Path Case #: [id number] C. The specimen is received in formalin, labeled "Efrain Aguilar, right posterior thigh tissue" and consists of a necrotic segment of yellow-sun tissue measuring 6.6 x 4.3 x 1.3 cm. Sectioning reveals fat necrosis and senior outside sales representative sections are submitted in C1. . D. The specimen is received in formalin, labeled "Efrain Aguilar, incarcerated incisional ventral hernia" and consists of a segment of yellow membranous tissue measuring 7.3 x 4.0 x 1.0 cm. Sectioning reveals no nodules or mass lesions. Control Systems Eng sections are submitted in D1. (SDY; 07/13/2018) SYU/SYU . 02 Pathologist provided ICD-10: M46.28, I96, M79.89, K43.6 . 02 CPT . 320594, 884106, 062128, 286009, [id number] Specimen Comment: A courtesy copy of this report has been sent to Specimen Comment: [phone]. Specimen Comment: Report sent to ,DR SCHULZ / DR RAND Performed at: [address], [place], [place] [id number] MD Hoang Gong MD Phone: [phone] Performed at: [address] [id number] MD Asya Quintanilla MD Phone: [phone]
--- NOTE | 2018-07-16 01:33 | NUR ---
ASSUMED CARE OF PT AT SHIFT CHANGE. PARTIAL ASSESSMENT CHARTED. PT AOX4, C/O PAIN, PO AND IV PAIN MEDS GIVEN THROUGHOUT NIGHT. DENIES CHEST PAIN. PT REFUSED TURNS, REFUSED WOUND ASSESSMENT AND DRESSING CHANGE. INFORMED PT ON WHY TURNS ARE IMPORTANT, AND WHY WOUND DRESSINGS NEED TO BE CHANGED, AND DID NOT ACKNOWLEDGE THE INFORMATION GIVEN. PT REFUSED TO LET THIS NURSE ASSESS LEGS AND FEET. O2 SATS WNL ON ROOM AIR. NO S/SX OF CARDIAC OR RESP DISTRESS NOTED. WILL CONTINUE TO MONITOR AND FOLLOW POC.
[2018-07-16 05:31] VITALS: BP 103/49
[2018-07-16 08:00] VITALS: BP 96/43
[2018-07-16 15:40] VITALS: BP 105/47
--- NOTE | 2018-07-16 18:19 | NUR ---
PT REMAINS A/O - REFUSED DRESSING CHANGE TO WOUND ON 3 OCCASSIONS - ATTEMPT ONE WAS A SIMPLE NO - ATTEMPT TWO PT WAS VERY AGITATED STATING THAT RN KEEPS BADGERING HIM AND HE WILL DISCUSS IT LATER - ATTEMPT THREE PT STATES BELLY HURTS FROM EATING COOKIES AND WILL LET NIGHT NURSE SCHEDULE CHECKER TOMORROW CHANGE THE DRESSING - FAMILY AT BEDSIDE FOR 3RD CONVERSATION RELATED TO WOUND DRESSING CHANGE
[2018-07-16 19:15] VITALS: BP 143/119
[2018-07-17 04:30] VITALS: BP 96/49
[2018-07-17 07:41] VITALS: BP 100/50
--- NOTE | 2018-07-17 07:49 | NUR ---
ASSUME CARE 1900. PT/VITALS STABLE. PT VERY IRRITABLE AND VERY UNCOORPERATIVE WITH CARE.PT IS ON BEDREST BUT REFUSES TO BE TOUCHED. HE DOES NOT WANT TO EB TURNED AND EDUCATION NEEDS TO BE DONE TO GET PT TO AGREE TO HEAD TO TOE ASSESSMENTS. PT REFUSES TO BE TOUCHED OR TURNED FOR WOUND CARE, WOULD NOT LET ANYONE CHANGE WOUND DRESSING. PT SMELLS BAD BUT REFUSES TO BE CLEANED UP. ALSO, PURULENT SCENT SEEMS TO BE COMING FROM WOUND BUT PT WOULD NOT TURN FOR NURSE TO ASSESS WOUNDS. PROGRESSING WITH POC. ASSESSMENT CHARTED. PLAN IS TO CONTINUE TO TREAT WITH ANRIBIOTICS, FOLLOW WITH WOUND CARE, AND POSSIBLE DISCHARGE TO SNF
--- NOTE | 2018-07-17 09:07 | NUR ---
PT WILL NOT BE EVALUATED BY OT DUE TO REFUSAL X3.
--- NOTE | 2018-07-17 09:53 | NUR ---
BASIC ASSESSMENT COMPLETED - PT REFUSES TURN AND WOUND CARE - STATES MAYBE LATER - EDUCATED THAT DIALYSIS WILL BE LATER - PT STILL REFUSING TREATMENT
--- NOTE | 2018-07-17 10:24 | NUR ---
[facility] updated they are working to obtain auth.
[2018-07-17 11:50] LABS: INR 1.9; PROTIME 20.1 Seconds (9.3-11.4)
--- NOTE | 2018-07-17 14:12 | NUR ---
Dr Comer approached [facility] to alert that patient stated to him he didnt want to return to [facility]. SP with patient and alerted we have cont [facility]. Reported they are in process of obtaining auth from insurance for his return. He reports ok and whatever. He is agreeable to return to [facility]. He is currently rec dialysis.
[2018-07-17 20:15] VITALS: BP 94/55
--- NOTE | 2018-07-17 22:20 | NUR ---
ASSUMED CARE OF PATIENT AROUND 1900. PATIENT C/O PAIN. MEDICATIONS ADMINISTERED AND PATIENT GIVEN NEXT AVAILABLE TIMES FOR MEDS. PATIENT REFUSING TURNS AND WOUND CARE. WANTS TO BE LEFT ALONE WITH EXCEPTIONS OF MEDICATION ADMINISTRATION, WILL ACCOMMODATE REQUEST. WILL CONTINUE TO MONITOR
[2018-07-18 04:53] VITALS: BP 95/52
[2018-07-18 08:09] VITALS: BP 95/45
--- NOTE | 2018-07-18 08:49 | NUR ---
ASSUMED PATIENT CARE THIS AM. PATIENT LYING IN BED, A&O. ROOM AIR. NO N/V STATED. PAIN PARTIALLY MANAGED WITH ORAL MEDICATION. PATIENT DID LET THIS RN PERFORM ASSESSMENT, UNABLE TO PALPATE PULSES OR ASSESS FOR EDEMA ON LOWER EXTREMITIES, PATIENT STATES JUST HAVING THE BLANKETS OFF HIS LEGS HURT SO BAD AND WOULD NOT LET THIS RN REMOVE LEG WRAPS OR SOCKS. TENTATIVE PLAN MADE WITH PATIENT TO PERFORM DRESSING CHANGE AROUND 1330. PATIENT UNHAPPY ABOUT IV ANTIBIOTICS RUNNING FOR FOUR HOURS AT A TIME, EDUCATION GIVEN TO PATIENT, PATIENT ALLOWED THIS RN TO HANG IV ANTIBIOTICS. INFORMED PATIENT OF NEXT AVAILABLE TIME FOR PAIN MEDICATION. PATIENT REFUSING TO REPOSITION AT THIS TIME.
--- NOTE | 2018-07-18 09:14 | NUR ---
ostomy care; refused for this [facility] nurse to view ostomy, states pouch intact, refused to have pouch change, informed pt pouch needs to be changed at least weekly, but usually done every 3-5 days, supplies left at bs, staff genetic counselor informed of above, will follow prn
--- NOTE | 2018-07-18 10:09 | NUR ---
Nutrition: pt seen per followup. S/P diverting colostomy, stage 4 sacral wound debridement. Also unstageable right posterior thigh wound. Noted pt refusing dressing changes. New start dialysis ~4 weeks ago. Weight down approx. 6#, negative fluid balance. Pt voices eating well but dislikes Karsten and wont drink it. Refuses offer of any other supplements and did not want to talk w/RD Reviewed protein sources and encouraged 100% intake of protein foods. Low nutrition risk.
[2018-07-18] MEDS ORDERED: FIRVANQ50 MG/1 ML PO (10:41)
[2018-07-18] MEDS ORDERED: PIPERACIL-TAZ2.25 G1 IV (10:41)
[2018-07-18] MEDS ORDERED: PHENERGAN 25 MG25 M1 PO (10:41)
[2018-07-18] MEDS ORDERED: CARDIZEM CD 18180 M3 PO (10:42)
[2018-07-18] MEDS ORDERED: FENTANYL 0.50 MCG/ML IV PUSH (10:42)
[2018-07-18] MEDS ORDERED: OXYCODONE HCL10 MG PO (10:43)
--- NOTE | 2018-07-18 12:20 | NUR ---
GLENIS reviewed chart. Awaiting insurance authorization for pt to return to LTAC at [facility]. GLENIS discussed with [facility] liaison. [facility] is able to accept pt when insurance authorization is obtained. GLENIS is following to assist as needed with discharge planning.
--- NOTE | 2018-07-18 15:35 | NUR ---
WOUND FOLLOW UP: PT. WAS SEEN TODAY BY DR. ALLISON AND MYSELF. PT. DID ALLOW WOUND CARE TO BE COMPLETED BY RECEPTION SPECIALIST, DR. ALLISON AND MYSELF. PT. HAS GONE DAYS WITHOUT THIS DRESSING BEING CHANGED PRIOR TO TODAY. RECOMMENDATIONS: CONTINUE WITH CURRENT PLAN OF CARE. PT. AND STAFF NURSE WERE INSTRUCTED ON WOUND CARE.
[2018-07-18 23:24] VITALS: BP 89/50
[2018-07-19 04:30] VITALS: BP 88/52
[2018-07-19 05:25] LABS: HEMATOCRIT 21.1 % (42.0-52.0); MCH 31.4 pg (26.0-34.0); MCHC 33.3 g/dL (28.0-37.0); MCV 94.4 fL (80.0-100.0); RBC 2.23 mil/uL (4.50-6.00); RDW 15.6 % (10.5-14.5); WBC 6.5 thou/uL (4.0-11.0)
[2018-07-19 05:36] LABS: ALBUMIN 1.4 g/dL (3.4-5.0); CALCIUM 7.9 mg/dL (8.5-10.1); CREATININE 3.9 mg/dL (0.7-1.3); PHOSPHORUS 3.1 mg/dL (2.5-4.9); POTASSIUM 3.5 mmol/L (3.5-5.1)
--- NOTE | 2018-07-19 05:47 | NUR ---
ASSUMED PT CARE AT 1900. PT A/OX4, VITAL SIGNS STABLE, SBP IN 80S, PT WILL NOT LET INSPECTOR RETURNED MATERIALS OR NURSE RETAKE VITALS. PT REFUSED TURNS AND CATHETER CARE. PT COMPLAINED OF OF GENERALIZED PAIN, PAIN PARTIALLY MANAGED WITH PAIN MEDICATION. PT PROGHRESSING SLOWLY TOWARD PLAN OF CARE. DIALYSIS IN AM. WILL CONTINUE TO MONITOR.
[2018-07-19 08:00] VITALS: BP 103/50
--- NOTE | 2018-07-19 14:31 | NUR ---
WOUND FOLLOW UP: UNABLE TO ASSESS PT. TODAY DUE TO DYIALYSIS TREATMENT. RECOMMENDATIONS: CONTINUE WITH CURRENT PLAN OF CARE. PT. AND STAFF NURSE WERE INSTRUCTED ON WOUND CARE.
--- NOTE | 2018-07-19 15:07 | NUR ---
PT REFUSED ALL TURNS AND WOUND CARE THIS SHIFT. PT DID TAKE ALL SCHEDULED MEDS AND REQUESTED PRN'S [id number]. PARTIAL PAIN CONTROL FROM PAIN MEDS ACHIEVED. PT EDUCATED REGARDING NONCOMPLIANCE WITH WOUND CARE AND REPOSITIONING. PT STATES HE DOESN'T CARE. AWAITING ACCEPTANCE TO LTAC
--- NOTE | 2018-07-19 15:32 | NUR ---
GLENIS reviewed chart and spoke with nursing and attending physician. Awaiting insurance authorization for pt to return to [facility]. GLENIS discussed with [facility] liaison who states that the case was still under review as of 1399. [facility] ambulance form on pt's chart should pt be ready for discharge later today or over the weekend. GLENIS is available to assist as needed. [facility]--
--- NOTE | 2018-07-19 16:55 | NUR ---
PT. DISCHARGING TODAY TO [facility]. FAXED DC ORDERS/SUMMARY TO FACILITY SPOKE WITH DIANN IN ADM. SHE RECEIVED ORDERS AND TRANSPORTATION ARRANGED BY AMBULANCE ([facility]) FOR [id number] TODAY, DTR. (GIGI) NOTIFIED OF DISCHARGE AND TIME OF TRANSPORT. UNIT NOTIFIED AND CHART COPY PER [place] RN TO CALL REPORT TO [phone].
--- NOTE | 2018-07-19 17:09 | NUR ---
PT DISCHARGING BACK TO [facility] THIS EVENING AFTER DIALYSIS. REPORT CALLED TO TONYA MOISE.
== END 2018-07-19 18:47 | DRG 463 ==
LOC: OR → TBA 05:36 → OR 09:04 → 2N 13:43 → OR 13:44 → 2N 13:45 → OR 16:24 → 2N 07-19 18:47
PROVIDERS: Internal Medicine Nephrology; Surgery; ADMIT Internal Medicine
PROC: 0JBL0ZZ Excision of Right Upper Leg Subcutaneous Tissue and Fascia, Open Approach (ICD-10-PCS; principal; 2018-07-12)
PROC: 0QB10ZZ Excision of Sacrum, Open Approach (ICD-10-PCS; principal; 2018-07-12)
PROC: 0D1L4Z4 Bypass Transverse Colon to Cutaneous, Percutaneous Endoscopic Approach (ICD-10-PCS; principal; 2018-07-12)
PROC: 0WQF4ZZ Repair Abdominal Wall, Percutaneous Endoscopic Approach (ICD-10-PCS; principal; 2018-07-12)
PROC: 5A1D70Z Performance of Urinary Filtration, Intermittent, Less than 6 Hours Per Day (ICD-10-PCS; 2018-07-13)
PROC: 0QBB0ZZ Excision of Right Lower Femur, Open Approach (ICD-10-PCS; 2018-07-13)
PROC: 5A1D70Z Performance of Urinary Filtration, Intermittent, Less than 6 Hours Per Day (ICD-10-PCS; 2018-07-15)
PROC: 5A1D70Z Performance of Urinary Filtration, Intermittent, Less than 6 Hours Per Day (ICD-10-PCS; 2018-07-19)
DX: M86.9 Osteomyelitis, unspecified (principal); L89.154 Pressure ulcer of sacral region, stage 4; N18.6 End stage renal disease; L89.623 Pressure ulcer of left heel, stage 3; G82.20 Paraplegia, unspecified; K43.0 Incisional hernia with obstruction, without gangrene; J44.9 Chronic obstructive pulmonary disease, unspecified; L89.210 Pressure ulcer of right hip, unstageable; G89.4 Chronic pain syndrome; K21.9 Gastro-esophageal reflux disease without esophagitis; I48.0 Paroxysmal atrial fibrillation; D72.829 Elevated white blood cell count, unspecified; D64.9 Anemia, unspecified; N05.9 Unspecified nephritic syndrome with unspecified morphologic changes; F41.9 Anxiety disorder, unspecified; Z28.21 Immunization not carried out because of patient refusal; Z86.718 Personal history of other venous thrombosis and embolism; Z88.8 Allergy status to other drugs, medicaments and biological substances; Z87.891 Personal history of nicotine dependence; Z79.01 Long term (current) use of anticoagulants; Z91.19 Patient's noncompliance with other medical treatment and regimen
CPT/HCPCS: 10081; 10797; 32100; 50010; 50101; 50249; 50290; 50386; 50403; 50555; 50558; 50740; 50962; 52265; 53307; 54022; 54118; 56462; 56524; 56525; 56526; 62110; 62900; 70005